=== PATIENT | male | born 1960 | race African-American/Black ===

== ENCOUNTER 2021-06-23 19:33 | Emergency (ER) | payer BC ==
[~2021-06-23] VITALS: Ht 172.7 cm; Wt 93.6 kg
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
[2021-06-23 20:07] LABS: BASO # 0.1 x10^3/uL (0.0-0.2); BASO % 1 % (0-3); EOS # 0.4 x10^3/uL (0.0-0.7); EOS % 5 % (0-3); HEMOGLOBIN 13.8 g/dL (13.0-17.5); LYMPH % 31 % (24-48); MEAN CORPUSCULAR HEMOGLOBIN 29 pg (25-35); MEAN CORPUSCULAR HGB CONC 33 g/dL (31-37); MEAN CORPUSCULAR VOLUME 89 fL (79-100); MONO # 0.6 x10^3/uL (0.0-1.1); MONO % 9 % (0-9); NEUT # 3.5 x10^3/uL (1.8-7.7); NEUT % 54 % (31-73); PLATELET COUNT 276 x10^3/uL (140-400); RED BLOOD COUNT 4.73 x10^6/uL (4.30-5.70); RED CELL DISTRIBUTION WIDTH 13.8 % (11.5-14.5); WHITE BLOOD COUNT 6.6 x10^3/uL (4.0-11.0)
[2021-06-23 20:08] LABS: BILIRUBIN,URINE NEGATIVE (NEG); CLARITY,URINE CLOUDY; COLOR,URINE YELLOW; NITRITE,URINE NEGATIVE (NEG); PH,URINE 7.5 (<5.0-8.0); PROTEIN,URINE NEGATIVE (NEG-TRACE); UROBILINOGEN,URINE 0.2 mg/dL (0.2 mg/dL)
[2021-06-23 20:12] LABS: BACTERIA,URINE 0 /HPF (0-FEW); RBC,URINE 0 /HPF (0-2); WBC,URINE 0 /HPF (0-4)
[2021-06-23 20:14] LABS: CALCIUM 8.1 mg/dL (8.5-10.1); CREATININE 1.5 mg/dL (0.7-1.3); GFR 48.1; POTASSIUM 3.8 mmol/L (3.5-5.1)
[2021-06-23 20:20] LABS: ALBUMIN 3.4 g/dL (3.4-5.0); ALBUMIN/GLOBULIN RATIO 0.9 (1.0-1.7); TOTAL BILIRUBIN 0.4 mg/dL (0.2-1.0); TOTAL PROTEIN 7.1 g/dL (6.4-8.2)
[2021-06-23] MEDS ORDERED: CONTRAST GIVEN. MC PRN (20:30)
[2021-06-23] MEDS ORDERED: IOHEXOL 300 MG/ML 100ML VIAL. IV ONE (20:30)
[2021-06-23] MEDS ORDERED: fentaNYL PF VIAL 100 MCG/2 ML VIAL IVP ONE (21:15)
[2021-06-23] MEDS ORDERED: IV NORMAL SALINE 1000ML BAG 1,000 ML IV ONE (21:15)
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
[2021-06-23] MEDS ORDERED: CYCL10TA19 PO (22:03)
[2021-06-23 22:10] VITALS: BP 158/96
== END 2021-06-23 22:25 | disposition home or self-care (01) ==
LOC: ER 19:33
DX: R10.11 Right upper quadrant pain (principal); N28.9 Disorder of kidney and ureter, unspecified; R07.89 Other chest pain; R42 Dizziness and giddiness; M54.2 Cervicalgia; R51.9 Headache, unspecified; G89.11 Acute pain due to trauma; V49.59XA Passenger injured in collision with other motor vehicles in traffic accident, initial encounter; Y92.488 Other paved roadways as the place of occurrence of the external cause; Y93.89 Activity, other specified; Y99.8 Other external cause status
CPT/HCPCS: 36415; 70450; 72125; 74177; 80053; 81001; 85025; 96361; 96374; 99285; J3010; J7030; Q9967

== ENCOUNTER → 2021-08-04 | Outpatient (CLI) | payer OTHER, BC ==
[~2021-08-04] MED LIST: CYCL10TA19 PO
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
== END ==
LOC: KCIC 15:15
PROVIDERS: ATTEND Family Medicine
DX: M25.512 Pain in left shoulder (principal); R07.81 Pleurodynia
CPT/HCPCS: 71101; 73030